=== PATIENT | female | born 1945 | race African-American/Black ===

== ENCOUNTER 2022-01-31 22:27 | Emergency (ER) | payer OTHER ==
[~2022-01-31] VITALS: Ht 162.6 cm; Wt 75.7 kg
--- NOTE | 2022-01-31 22:30 | NUR ---
Patient walked into ER c/o lower back pain radiating to left leg that started about 3 weeks ago. Patient is A/Ox4, no SOB, no distress noted
[2022-01-31] MEDS ORDERED: KETOROLAC TROMETHAMINE 30 MG INJ IM ONE (23:00)
[2022-01-31] MEDS ORDERED: KETOROLAC TROMETHAMINE 30 MG INJ ONE (23:02)
[2022-01-31] MEDS ORDERED: NAPR-1164 PO (23:18)
--- NOTE | 2022-01-31 23:30 | NUR ---
Patient discharged to home in stable condition. Written and verbal after care instructions given. Patient verbalizes understanding of instructions. Stressed follow up or return to ER for worsening s/s. Patient is A/Ox4, no SOB, no distress noted
[2022-01-31 23:39] VITALS: BP 138/76
== END 2022-01-31 23:30 | disposition home or self-care (01) ==
LOC: ER 22:34
DX: M54.42 Lumbago with sciatica, left side (principal); M79.7 Fibromyalgia; E11.9 Type 2 diabetes mellitus without complications; Z95.5 Presence of coronary angioplasty implant and graft; Z88.6 Allergy status to analgesic agent; Z88.2 Allergy status to sulfonamides
CPT/HCPCS: 96372; 99283; J1885; A4663